=== PATIENT | female | born 1965 | race African-American/Black ===

== ENCOUNTER 2019-02-28 13:19 | Emergency (ER) | payer OTHER, SELFPAY ==
[2019-02-28] MEDS ORDERED: Dexamethasone 4 MG TAB ONE (14:06)
[2019-02-28] MEDS ORDERED: Acetaminophen 325 MG TAB ONE (14:06)
[2019-02-28] MEDS ORDERED: Diazepam 5 MG TAB ONE (14:06)
[2019-02-28] MEDS ORDERED: HYDROcodone/Acetaminophen 5/325 mg Tablet ONE (14:06)
== END 2019-02-28 14:45 | disposition home or self-care (01) ==
LOC: MADERS 13:19
DX: M79.10 Myalgia, unspecified site (principal)
CPT/HCPCS: 99283; J8540

== ENCOUNTER 2019-05-07 08:11 | Emergency (ER) | payer SELFPAY | END 2019-05-07 09:09 | disposition home or self-care (01) | LOC: MADERS 08:11 | DX: M19.042 Primary osteoarthritis, left hand (principal); M19.041 Primary osteoarthritis, right hand; X50.1XXA Overexertion from prolonged static or awkward postures, initial encounter | CPT/HCPCS: 99283 ==

== ENCOUNTER 2019-12-26 11:43 | Emergency (ER) | payer SELFPAY ==
[2019-12-26] MEDS ORDERED: Ibuprofen 800 MG TAB ONE (12:52)
[2019-12-26] MEDS ORDERED: Acetaminophen 325 MG TAB ONE (12:52)
== END 2019-12-26 13:03 | disposition home or self-care (01) ==
LOC: MADERS 11:43
DX: J11.1 Influenza due to unidentified influenza virus with other respiratory manifestations (principal); R11.2 Nausea with vomiting, unspecified
CPT/HCPCS: 99283

== ENCOUNTER 2021-01-10 07:18 | Outpatient (CLI) | payer SELFPAY ==
[2021-01-10 12:10] LABS: #Basophils 0.1 thou/uL (0.0-0.2); #Eosinphils 0.8 thou/uL (0.0-0.7); #Lymphocytes 3.5 thou/uL (1.20-3.40); #Monocytes 0.8 thou/uL (0.11-0.59); #Neutrophils 4.1 thou/uL (1.40-6.50); %Basophils 1.3 % (0.0-1.0); %Eosinophils 8.9 % (0.0-10.0); %Lymphocytes 37.6 % (21.0-51.0); %Monocytes 8.7 % (0.0-10.0); %Neutrophils 43.6 % (42.0-75.0); Hemoglobin 11.7 g/dL (12.0-16.0); Mean Corpuscular HGB CONC 32.9 g/dL (32.0-36.0); Mean Corpuscular Hemoglobin 30.6 pg (27.0-31.0); Mean Corpuscular Volume 92.9 fL (78.0-98.0); Mean Platelet Volume 9.4 fL (7.4-10.4); Platelet Count 325 thou/uL (130-400); RBC Distribution Width 12.7 % (11.5-14.5); Red Blood Cell (RBC) Count 3.82 mill/uL (4.20-5.40); White Blood Cell (WBC) Count 9.3 thou/uL (4.8-10.8)
[2021-01-10 12:12] LABS: Hemoglobin A1c 6.6 % (4.0-6.0)
[2021-01-10 12:17] LABS: ALT (SGPT) 12 U/L (8-55); AST (SGOT) 11 U/L (5-34); Albumin 4.2 g/dL (3.5-5.0); Alkaline Phosphatase 103 U/L (40-110); Anion Gap 14 mmol/L (10-20); BUN (Urea Nitrogen) 14 mg/dL (9.8-20.1); Bilirubin, Total 0.2 mg/dL (0.2-1.2); Calc. Creatinine Clearance 0 mL/min (70-130); Calcium 9.4 mg/dL (7.8-10.44); Carbon Dioxide 21 mmol/L (22-29); Chloride 106 mmol/L (98-107); Cholesterol 170 mg/dl (< 200 Desired); Globulin 3.1 g/dL (2.4-3.5); Glucose 132 mg/dL (70-105); HDL Cholesterol 43 mg/dL (>60 Neg Risk); LDL Cholesterol, Calculated 101 mg/dL; Potassium 4.3 mmol/L (3.5-5.1); Protein, Total 7.3 g/dL (6.0-8.3); Sodium 137 mmol/L (136-145); Triglycerides 131 mg/dL (Less than 150)
[2021-01-10 12:35] LABS: HIV (1/2) Antibody/Antigen Non-Reactive (NonReactive); HIV 1/2 INDEX 0.06 S/CO (<1.00); Thyroid Stimulating Hormone 2.1426 uIU/mL (0.35-4.94); Vitamin D, 25 Hydroxy 77.2 ng/ml (> 30.0)
== END 2021-01-10 07:19 | disposition home or self-care (01) ==
LOC: MADLAB 07:18
PROVIDERS: ATTEND Family Medicine
DX: Z01.419 Encounter for gynecological examination (general) (routine) without abnormal findings (principal)
CPT/HCPCS: 36415; 80053; 80061; 82306; 83036; 84443; 85025; 87389

== ENCOUNTER 2021-05-10 13:21 | Emergency (ER) | payer SELFPAY | END 2021-05-10 14:44 | disposition home or self-care (01) | LOC: MADERS 13:21 | DX: S09.90XA Unspecified injury of head, initial encounter (principal); S10.91XA Abrasion of unspecified part of neck, initial encounter; S29.9XXA Unspecified injury of thorax, initial encounter; R51.9 Headache, unspecified; Y04.0XXA Assault by unarmed brawl or fight, initial encounter | CPT/HCPCS: 70486; 71045; 72125 ==

== ENCOUNTER 2021-11-30 13:36 | Emergency (ER) | payer SELFPAY ==
[2021-11-30] MEDS ORDERED: Ketorolac Tromethamine 60 MG/2 ML VIAL ONE (14:16)
[2021-11-30] MEDS ORDERED: cefTRIAXone\\ROCEPHIN 1 GM VIAL ONE (14:16)
[2021-11-30] MEDS ORDERED: Lidocaine 1% (PF) 30 ML VIAL ONE (14:17)
== END 2021-11-30 14:31 | disposition home or self-care (01) ==
LOC: MADERS 13:36
DX: K04.7 Periapical abscess without sinus (principal)
CPT/HCPCS: 96372; 99282; J0696; J1885; J2001

== ENCOUNTER 2022-02-07 18:14 | Emergency (ER) | payer OTHER, SELFPAY ==
[2022-02-07] MEDS ORDERED: Acetaminophen 500 MG TAB ONE (19:29)
[2022-02-07] MEDS ORDERED: Ondansetron ODT 4 MG TAB ONE (20:01)
== END 2022-02-07 20:40 | disposition home or self-care (01) ==
LOC: MADERS 18:14
DX: A08.4 Viral intestinal infection, unspecified (principal); J10.1 Influenza due to other identified influenza virus with other respiratory manifestations; F17.220 Nicotine dependence, chewing tobacco, uncomplicated; Z79.899 Other long term (current) drug therapy
CPT/HCPCS: 87804; 99283; Q0162

== ENCOUNTER 2022-06-01 09:02 | Emergency (ER) | payer SELFPAY ==
[~2022-06-01 09:02] MED LIST: Iopamidol 370 76% 100 ML VIAL ONE
[2022-06-01 10:19] LABS: ALT (SGPT) 14 U/L (8-55); AST (SGOT) 14 U/L (5-34); Albumin 4.3 g/dL (3.5-5.0); Alkaline Phosphatase 110 U/L (40-110); Anion Gap 13 mmol/L (10-20); BUN (Urea Nitrogen) 12 mg/dL (9.8-20.1); Bilirubin, Total 0.5 mg/dL (0.2-1.2); CRP (Inflammatory) 1.49 mg/dL (= or < 0.5); Calc. Creatinine Clearance 0 mL/min (70-130); Calcium 9.4 mg/dL (7.8-10.44); Carbon Dioxide 22 mmol/L (22-29); Chloride 108 mmol/L (98-107); Eosinophils 5 % (0-10); Estimated GFR 67; Giant Platelets SLIGHT; Globulin 3.2 g/dL (2.4-3.5); Glucose 143 mg/dL (70-105); Hemoglobin 12.2 g/dL (12.0-16.0); Lymphocytes 23 % (21-51); MDiff Complete? YES; Manual Diff?? YES; Mean Corpuscular HGB CONC 31.8 g/dL (32.0-36.0); Mean Corpuscular Hemoglobin 27.8 pg (27.0-31.0); Mean Corpuscular Volume 87.5 fL (78.0-98.0); Mean Platelet Volume 10.5 fL (7.4-10.4); Monocytes 3 % (0-10); Neutrophil 52 % (42-75); Nucleated RBC 1 % (0); Platelet Count 311 thou/uL (130-400); Platelet Morphology Comment Appears Adequate; Potassium 4.2 mmol/L (3.5-5.1); Protein, Total 7.5 g/dL (6.0-8.3); RBC Distribution Width 13.1 % (11.5-14.5); RBC Morphology Normal; Reactive Lymphocytes 17 % (0-10); Red Blood Cell (RBC) Count 4.39 mill/uL (4.20-5.40); Sodium 139 mmol/L (136-145); White Blood Cell (WBC) Count 8.6 thou/uL (4.8-10.8)
[2022-06-01] MEDS ORDERED: Boostrix 0.5 ML (Tdap) VIAL ONE (10:50)
[2022-06-01] MEDS ORDERED: Lidocaine 1% w/Epinephrine 1:100K 20 ML VIAL ONE (10:50)
== END 2022-06-01 11:10 | disposition home or self-care (01) ==
LOC: MADERS 09:02
DX: L03.112 Cellulitis of left axilla (principal); L02.412 Cutaneous abscess of left axilla; F17.220 Nicotine dependence, chewing tobacco, uncomplicated; Z23 Encounter for immunization
CPT/HCPCS: 10061; 71260; 80053; 85025; 86140; 87070; 87077; 87186; 87205; 90471; 90715; Q9967

== ENCOUNTER 2022-12-18 12:59 | Emergency (ER) | payer OTHER, SELFPAY ==
[2022-12-18] MEDS ORDERED: traMADol HCl 50 MG TAB ONE (14:50)
[2022-12-18] MEDS ORDERED: Ketorolac Tromethamine 60 MG/2 ML VIAL ONE (14:50)
== END 2022-12-18 15:00 | disposition home or self-care (01) ==
LOC: MADERS 12:59
DX: S40.012A Contusion of left shoulder, initial encounter (principal); H40.9 Unspecified glaucoma; F17.220 Nicotine dependence, chewing tobacco, uncomplicated; V43.52XA Car driver injured in collision with other type car in traffic accident, initial encounter; Z79.899 Other long term (current) drug therapy
CPT/HCPCS: 96372; J1885

== ENCOUNTER 2023-06-04 08:03 | Emergency (ER) | payer SELFPAY ==
[2023-06-04] MEDS ORDERED: predniSONE 20 MG TAB ONE (08:30)
[2023-06-04] MEDS ORDERED: predniSONE 10 MG TAB ONE (08:30)
[2023-06-04] MEDS ORDERED: Ibuprofen 800 MG TAB ONE (08:30)
== END 2023-06-04 08:41 | disposition home or self-care (01) ==
LOC: MADERS 08:03
DX: M25.532 Pain in left wrist (principal); M25.531 Pain in right wrist; M25.561 Pain in right knee; Z87.891 Personal history of nicotine dependence
CPT/HCPCS: 99283; J7512

== ENCOUNTER 2023-06-20 19:22 | Emergency (ER) | payer OTHER, SELFPAY ==
[2023-06-20] MEDS ORDERED: Ketorolac Tromethamine 60 MG/2 ML VIAL ONE (21:10)
== END 2023-06-20 22:13 | disposition home or self-care (01) ==
LOC: MADERS 19:22
DX: M54.89 Other dorsalgia (principal); H40.9 Unspecified glaucoma; X50.0XXA Overexertion from strenuous movement or load, initial encounter; Z87.891 Personal history of nicotine dependence
CPT/HCPCS: 71046; 96372; J1885

== ENCOUNTER 2024-01-13 15:07 | Emergency (ER) | payer OTHER ==
[2024-01-13] MEDS ORDERED: Acetaminophen 500 MG TAB ONE (15:35)
[2024-01-13] MEDS ORDERED: Sodium Chloride 0.9% 500 ML ONE (15:45)
[2024-01-13 16:24] LABS: Anion Gap 15 mmol/L (10-20); BUN (Urea Nitrogen) 11 mg/dL (9.8-20.1); Calc. Creatinine Clearance 0 mL/min (70-130); Calcium 9.7 mg/dL (7.8-10.44); Carbon Dioxide 21 mmol/L (22-29); Chloride 106 mmol/L (98-107); Estimated GFR 68; Glucose 114 mg/dL (70-105); Sodium 138 mmol/L (136-145)
[2024-01-13 16:25] LABS: Band 3 % (5-11); Hematocrit 40.3 % (36.0-47.0); Hemoglobin 12.9 g/dL (12.0-16.0); Hypochromia SLIGHT = 6-15 cells (100X) (0-5/hpf); Lymphocytes 18 % (21-51); MDiff Complete? YES; Mean Corpuscular HGB CONC 31.9 g/dL (32.0-36.0); Mean Corpuscular Hemoglobin 29.3 pg (27.0-31.0); Mean Corpuscular Volume 91.8 fl (78.0-98.0); Mean Platelet Volume 10.4 fL (7.4-10.4); Monocytes 10 % (0-10); Neutrophil 67 % (42-75); Platelet Adequacy Comment Appears Adequate; Platelet Count 267 10x3/uL (130-400); RBC Distribution Width 12.9 % (11.5-14.5); Red Blood Cell (RBC) Count 4.39 mill/uL (4.20-5.40); White Blood Cell (WBC) Count 8.4 10x3/uL (4.8-10.8)
[2024-01-13 16:28] LABS: Troponin I Less than 0.010 ng/mL (< 0.028)
[2024-01-13 16:37] LABS: SARS-CoV-2 NAA Rapid Test Not Detected (NotDetected)
[2024-01-13 17:39] LABS: Bilirubin Negative (Negative); Blood, Urine Small (Negative); Glucose, Urine (Dipstick) Negative (Negative); Ketone, Urine Negative (Negative); Leukocyte Small (Negative); Nitrite Negative (Negative); Protein, Urine (Dipstick) Negative (Neg-Trace); Urobilinogen 0.2 mg/dL (Less than 2); pH, Urine 5.5 (5.0-9.0)
[2024-01-13 17:40] LABS: Clarity Hazy (Clear)
[2024-01-13 17:41] LABS: Specific Gravity, Urine 1.005 (1.002-1.036)
[2024-01-13 17:46] LABS: Bacteria/HPF Rare-Few HPF (None Seen); CAUTI Indications for Culture Dysuria,urgency,freq; RBC/HPF 0-3 HPF (0-3); Squamous Epithelial 0-3 HPF (0-3)
[2024-01-13 17:47] LABS: Urine Culture Reflex No No
[2024-01-13] MEDS ORDERED: cefTRIAXone (ROCEPHIN) 1 GM VIAL ONE (17:56)
== END 2024-01-13 18:20 | disposition home or self-care (01) ==
LOC: MADERS 15:07
DX: N39.0 Urinary tract infection, site not specified (principal); R51.9 Headache, unspecified; H40.9 Unspecified glaucoma; Z87.891 Personal history of nicotine dependence; Z79.899 Other long term (current) drug therapy
CPT/HCPCS: 70450; 80048; 81001; 83605; 84484; 85025; 87804; 96374; J0696; J7030; U0002

== ENCOUNTER 2024-05-29 18:32 | Emergency (ER) | payer MEDICAID, OTHER ==
[2024-05-29] MEDS ORDERED: Ibuprofen 800 MG TAB ONE (19:05)
== END 2024-05-29 19:10 | disposition home or self-care (01) ==
LOC: MADERS 18:32
DX: L03.317 Cellulitis of buttock (principal); L02.91 Cutaneous abscess, unspecified
CPT/HCPCS: 99283

== ENCOUNTER 2024-10-21 16:11 | Emergency (ER) | payer OTHER ==
[2024-10-21] MEDS ORDERED: Guaifenesin DM 100-10/5 ML UDCUP ONE (16:33)
== END 2024-10-21 16:55 | disposition home or self-care (01) ==
LOC: MADERS 16:11
DX: R05.9 Cough, unspecified (principal); F17.220 Nicotine dependence, chewing tobacco, uncomplicated
CPT/HCPCS: 99283